=== PATIENT | female | born 1985 | race Two or more races ===

== ENCOUNTER 2018-03-01 12:37 | Emergency (ER) | payer SELFPAY ==
[~2018-03-01] VITALS: Ht 157.5 cm; Wt 76.2 kg
[2018-03-01 13:11] VITALS: BP 121/65
== END 2018-03-01 13:27 | disposition home or self-care (01) ==
LOC: ER 12:37
DX: O26.811 Pregnancy related exhaustion and fatigue, first trimester (principal); Z3A.01 Less than 8 weeks gestation of pregnancy